=== PATIENT | female | born 1995 | race Caucasian/White ===

== ENCOUNTER 2017-02-06 20:54 | Emergency (ER) | payer MEDICAID ==
[~2017-02-06] VITALS: Ht 160 cm; Wt 100.7 kg
[2017-02-06 20:57] VITALS: BP 158/74
[2017-02-06] MEDS ORDERED: IMI25 PO (21:04)
[2017-02-06] MEDS ORDERED: OSC500 PO (21:04)
[2017-02-06] MEDS ORDERED: VITD1000 PO (21:04)
[2017-02-06] MEDS ORDERED: ELA10 PO (21:04)
--- NOTE | 2017-02-06 21:07 | NUR ---
PT TAKEN TO BED 8
--- NOTE | 2017-02-06 21:08 | NUR ---
Patient being evaluated by physician at bedside.
[2017-02-06] MEDS ORDERED: NACL 0.9% 1,000 ML IV ONE (21:15)
[2017-02-06 21:27] LABS: BASOPHILS % (AUTO) 0.5 % (0.0-2.0); EOSINOPHILS # (AUTO) 0.3 K/uL (0-0.4); EOSINOPHILS % (AUTO) 2.9 % (0.0-4.0); HEMATOCRIT 41.9 % (36-48); HEMOGLOBIN 13.5 g/dL (12.0-16.0); LYMPHOCYTES # (AUTO) 1.9 K/uL (2.5-16.5); LYMPHOCYTES % (AUTO) 20.1 % (20.5-51.1); MEAN CORPUSCULAR HEMOGLOBIN 28 pg (27-31); MEAN CORPUSCULAR HGB CONC 32 g/dL (33-37); MEAN CORPUSCULAR VOLUME 86 fL (80-94); MONOCYTES # (AUTO) 0.5 K/uL (0.8-1.0); MONOCYTES % (AUTO) 5.3 % (1.7-9.3); NEUTROPHILS # (AUTO) 6.9 K/uL (1.8-7.7); NEUTROPHILS % (AUTO) 71.2 % (42.2-75.2); PLATELET COUNT (AUTO) 232 K/uL (140-450); RED BLOOD CELL COUNT(AUTO) 4.85 MIL/uL (4.20-5.40); RED CELL DISTRIBUTION WIDTH 13.7 % (11.6-13.7); WHITE BLOOD COUNT (AUTO) 9.6 K/uL (4.8-10.8)
--- NOTE | 2017-02-06 21:37 | NUR ---
21Y/F PRESENTS TO ER C/O FLU LIKE SYMPTOMS. PMH digeorge syndrome, MIGRAINE. ALLERGY TO AMOXICILLIN. PT STATES SHE HAS HAD A PRODUCTIVE COUGH FOR 3DAYS, SORTHROAT, RUNNY NOSE AND WATTERY EYES. PT DENIES FEVER, N/V/D, HEADACHE. BL BREATH SOUNDS CLEAR THROUGH OUT. PT STATES SHE HAS SWELLING AND SORENESS TO LEFT SIDE OF NECK. SKIN INTACT, NO REDNESS NOTED, PT AAOX4, PT SITTING IN BED, SIDE RAIL UP X1, ER MD AWARE OF PT STATUS.
[2017-02-06 21:50] LABS: ALBUMIN 3.7 g/dL (3.4-5.0); ANION GAP 12.1 (8-16); CARBON DIOXIDE 30.2 mmol/L (21-32); POTASSIUM 3.3 mmol/L (3.5-5.1); TOTAL BILIRUBIN 0.3 mg/dL (0.0-1.0)
[2017-02-06] MEDS ORDERED: CALCIUM GLUCONATE 10% 1000 MG/10 ML VIAL IVP ONE (22:00)
[2017-02-07] MEDS ORDERED: CALCIUM GLUCONATE 10% 1000 MG/10 ML VIAL ONE (00:08)
--- NOTE | 2017-02-07 00:25 | NUR ---
1GM CALCIUM GLUCONATE GIVEN OVER 5 MIN MIXED WITH 30ML NS FLUSH VIA IVP LEFT AC.
--- NOTE | 2017-02-07 01:15 | NUR ---
IV removed, catheter intact and site benign. Applied folded 4x4 gauze and tape to stop bleeding.
--- NOTE | 2017-02-07 01:15 | NUR ---
Patient discharged with v/s stable. Written and verbal after care instructions given and explained. Patient verbalized understanding. Ambulatory with steady gait. All questions addressed prior to discharge. Advised to follow up with PMD.
[2017-02-07 01:16] VITALS: BP 128/84
== END 2017-02-07 01:15 | disposition home or self-care (01) ==
LOC: MED 20:54
DX: B34.9 Viral infection, unspecified (principal); E83.51 Hypocalcemia; D82.1 Di George's syndrome; E87.6 Hypokalemia; I10 Essential (primary) hypertension; Z88.1 Allergy status to other antibiotic agents
CPT/HCPCS: 36415; 80053; 85025; 93005; 96361; 96374; 99285; J0610; J7030

== ENCOUNTER 2017-05-30 01:11 | Emergency (ER) | payer MEDICAID ==
[~2017-05-30] VITALS: Ht 160 cm; Wt 95.9 kg
[~2017-05-30 01:11] MED LIST: ELA10 PO; IMI25 PO; OSC500 PO; VITD1000 PO
[2017-05-30 01:19] VITALS: BP 144/95
[2017-05-30] MEDS ORDERED: DULO40CA2 PO (01:25)
--- NOTE | 2017-05-30 01:28 | NUR ---
PATIENT AMBULATED TO BED 2
--- NOTE | 2017-05-30 01:30 | NUR ---
PATIENT PRESENTS TO ED WITH SORE THROAT AND VOMITING ONE TIME X1 DAY. PT DENIES N/D; SKIN IS PINK/WARM/DRY; AAOX4 WITH EVEN AND STEADY GAIT; LUNGS CLEAR BL; HR EVEN AND REGULAR; PT DENIES ANY FEVER, CP, SOB, OR COUGH AT THIS TIME; PATIENT STATES PAIN OF 0/10 AT THIS TIME; VSS; PATIENT POSITIONED FOR COMFORT; HOB ELEVATED; BEDRAILS UP X1; BED DOWN. ER MD MADE AWARE OF PT STATUS.
[2017-05-30] MEDS ORDERED: ONDANSETRON 4 MG ODT PO ONE (01:45)
[2017-05-30 02:00] VITALS: BP 144/95
== END 2017-05-30 02:02 | disposition home or self-care (01) ==
LOC: MED 01:11
DX: A08.4 Viral intestinal infection, unspecified (principal); R03.0 Elevated blood-pressure reading, without diagnosis of hypertension; I10 Essential (primary) hypertension; Z79.899 Other long term (current) drug therapy; Z88.1 Allergy status to other antibiotic agents; Z91.013 Allergy to seafood; Z91.018 Allergy to other foods
CPT/HCPCS: 99283; S0119

== ENCOUNTER 2017-09-01 08:38 | Emergency (ER) | payer MEDICAID ==
[~2017-09-01] VITALS: Ht 162.6 cm; Wt 95.8 kg
[~2017-09-01 08:38] MED LIST changes: +DULO40CA2 PO; -ELA10 PO
[2017-09-01 08:48] VITALS: BP 129/79
--- NOTE | 2017-09-01 08:54 | NUR ---
PT AMBULATES TO BED 11, REPORT GIVEN TO YONI MANCILLA
--- NOTE | 2017-09-01 08:55 | NUR ---
21Y/F BIB SELF C/O RHINORRHEA, SORE THROAT, DIARHEA, COUGH X 3 DAYS. PT STATES SHE HAS N/D; SKIN IS PINK/WARM/DRY; AAOX4 WITH EVEN AND STEADY GAIT; PATIENT STATES PAIN OF 0/10 AT THIS TIME; VSS; PATIENT POSITIONED FOR COMFORT; HOB ELEVATED; BEDRAILS UP X1; BED DOWN. ER MD MADE AWARE OF PT STATUS.
--- NOTE | 2017-09-01 09:19 | NUR ---
STREP DONE AND GIVEN TO [facility]
--- NOTE | 2017-09-01 09:30 | NUR ---
Patient discharged with v/s stable. Written and verbal after care instructions given and explained. Patient alert, oriented and verbalized understanding of instructions. Ambulatory with steady gait. All questions addressed prior to discharge. ID band removed. Patient advised to follow up with PMD. Rx of PROMETHAZINE DM AND AZITHROMYCIN given. Patient educated on indication of medication including possible reaction and side effects. Opportunity to ask questions provided and answered.
[2017-09-01 09:31] VITALS: BP 127/78
== END 2017-09-01 09:30 | disposition home or self-care (01) ==
LOC: MED 08:38
DX: J02.8 Acute pharyngitis due to other specified organisms (principal); I10 Essential (primary) hypertension; E07.9 Disorder of thyroid, unspecified; Z88.0 Allergy status to penicillin
CPT/HCPCS: 87081; 99284

== ENCOUNTER 2018-02-28 08:41 | Emergency (ER) | payer MEDICAID ==
[~2018-02-28] VITALS: Ht 160 cm; Wt 95.7 kg
[2018-02-28 08:59] VITALS: BP 129/65
--- NOTE | 2018-02-28 09:08 | NUR ---
Patient ambulated to bed 10. RN evaluating patient at bedside.
--- NOTE | 2018-02-28 09:15 | NUR ---
pt. came into the ed due to c/o bilateral ear pain x 1 wk denies drainage. denies any fever or chills. denies n/v/d . 12/09 sharp pain bilat. ear pain that is non radiaiting. er md made aware , safety precautions implemented . will continue to monitor. hx--digeorge symdrome, migraine, increased csf pressure
[2018-02-28 10:10] VITALS: BP 128/66
--- NOTE | 2018-02-28 10:10 | NUR ---
Patient discharged with v/s stable. Written and verbal after care instructions given and explained. Patient alert, oriented and verbalized understanding of instructions. Ambulatory with steady gait. All questions addressed prior to discharge. ID band removed. Patient advised to follow up with PMD. Rx of tramadol, levaquin 500mg, prednisone given. Patient educated on indication of medication including possible reaction and side effects. Opportunity to ask questions provided and answered.
== END 2018-02-28 10:10 | disposition home or self-care (01) ==
LOC: MED 08:41
DX: H65.93 Unspecified nonsuppurative otitis media, bilateral (principal); I41 Myocarditis in diseases classified elsewhere; D82.1 Di George's syndrome; Z88.1 Allergy status to other antibiotic agents; Z91.013 Allergy to seafood; Z79.899 Other long term (current) drug therapy
CPT/HCPCS: 99283

== ENCOUNTER 2019-04-28 08:48 | Emergency (ER) | payer SELFPAY ==
[~2019-04-28] VITALS: Ht 160 cm; Wt 98.5 kg
[2019-04-28 08:55] VITALS: BP 140/74
--- NOTE | 2019-04-28 09:02 | NUR ---
PT AMB TO BED 8.
--- NOTE | 2019-04-28 10:05 | NUR ---
BLOOD DRAWN BY THE MD GENEVA SEEING PATIENT
[2019-04-28 10:23] LABS: BASOPHILS # (AUTO) 0.1 K/uL (0.00-0.22); EOSINOPHILS # (AUTO) 0.1 K/uL (0-0.4); EOSINOPHILS % (AUTO) 1.2 % (0.0-4.0); HEMATOCRIT 36.7 % (36-48); HEMOGLOBIN 12.2 g/dL (12.0-16.0); LYMPHOCYTES # (AUTO) 1.9 K/uL (2.5-16.5); LYMPHOCYTES % (AUTO) 22.2 % (20.5-51.1); MEAN CORPUSCULAR HEMOGLOBIN 28 pg (27-31); MEAN CORPUSCULAR HGB CONC 33 g/dL (33-37); MEAN CORPUSCULAR VOLUME 82.9 fL (80-94); MONOCYTES # (AUTO) 0.4 K/uL (0.8-1.0); MONOCYTES % (AUTO) 4.7 % (1.7-9.3); NEUTROPHILS # (AUTO) 6.1 K/uL (1.8-7.7); NEUTROPHILS % (AUTO) 70.9 % (42.2-75.2); PLATELET COUNT (AUTO) 208 K/uL (140-450); RED BLOOD CELL COUNT(AUTO) 4.42 MIL/uL (4.20-5.40); RED CELL DISTRIBUTION WIDTH 15.1 % (11.6-13.7); WHITE BLOOD COUNT (AUTO) 8.6 K/uL (4.8-10.8)
[2019-04-28 10:30] LABS: ALBUMIN 2.9 g/dL (3.4-5.0); ANION GAP 11.9 (8-16); CARBON DIOXIDE 30.8 mmol/L (21-32); POTASSIUM 3.7 mmol/L (3.5-5.1); TOTAL BILIRUBIN 0.3 mg/dL (0.0-1.0)
--- NOTE | 2019-04-28 10:45 | NUR ---
Dr. Mccormack is evaluating patient at bedside.
[2019-04-28 10:47] LABS: APPEARANCE,URINE HAZY (CLEAR); BILIRUBIN,URINE NEGATIVE (NEGATIVE); BLOOD, URINE 2+ (NEGATIVE); COLOR,URINE YELLOW (YELLOW); LEUKOCYTE ESTERASE ,URINE NEGATIVE (NEGATIVE); NITRITE, URINE NEGATIVE (NEGATIVE); PH,URINE 8.5 (5.0-9.0); UGLUCOSE NEGATIVE (NEGATIVE)
[2019-04-28 10:54] VITALS: BP 121/84
[2019-04-28 10:55] LABS: RBC,URINE 0-5 /HPF (0-5)
[2019-04-28 10:56] LABS: WBC,URINE 0-5 /HPF (0-5)
== END 2019-04-28 10:54 | disposition home or self-care (01) ==
LOC: MED 08:48
DX: R04.0 Epistaxis (principal); R68.2 Dry mouth, unspecified; I11.0 Hypertensive heart disease with heart failure; E07.9 Disorder of thyroid, unspecified; Z88.1 Allergy status to other antibiotic agents; Z79.899 Other long term (current) drug therapy
CPT/HCPCS: 30901; 36415; 80053; 81001; 85025; 99284